=== PATIENT | female | born 1970 | race African-American/Black ===

== ENCOUNTER 2018-06-11 20:26 | Emergency (ER) | payer OTHER ==
[~2018-06-11] VITALS: Ht 167.6 cm; Wt 98.7 kg
[~2018-06-11 20:26] MED LIST: FLEXERIL10 MG PO; NAPROXEN500 MG PO
[2018-06-11 21:26] LABS: HEMATOCRIT 34.6 % (36.0-46.0); HEMOGLOBIN 11.5 G/DL (11.9-15.5); MCH 30.5 PG (29.0-34.0); MCHC 33.2 G/DL (30.0-36.0); MCV 91.8 FL (83-99); RBC DIS.WIDTH-CV 12.6 % (11.8-14.6); RBC DIS.WIDTH-SD 41.7 % (39-53); RED BLOOD COUNT 3.77 M/uL (3.80-5.20); WHITE BLOOD COUNT 8.7 K/uL (4.1-10.2)
[2018-06-11 21:27] LABS: CHLORIDE 106 mEq/L (99-109); POTASSIUM 4.3 mEq/L (3.7-5.4); SODIUM 140 mEq/L (136-147)
[2018-06-11 21:28] LABS: GLUCOSE 104 mg/dL (70-99)
[2018-06-11 21:32] LABS: GFR ESTIMATE (CALCULATED) > 59 mL/min/
[2018-06-11 21:33] LABS: UREA NITROGEN (BUN) 10 mg/dL (9-23)
[2018-06-11 21:39] LABS: TROP-I INTERPRETATION NEGATIVE; TROPONIN-I < 0.01 ng/mL (0.0-0.30)
[2018-06-11 22:10] LABS: PLAT.SUFFICIENCY ADEQUATE; PLATELET COUNT 262 K/uL (156-360)
[2018-06-12] MEDS ORDERED: ASPIR 8181 M1 PO (00:37)
[2018-06-12 00:52] VITALS: BP 132/82
[2018-06-12] MEDS ORDERED: FLONASE16 G1 BOTH NARES (21:52)
== END 2018-06-12 00:57 | disposition home or self-care (01) ==
LOC: EME 20:26
DX: I10 Essential (primary) hypertension (principal); R42 Dizziness and giddiness
CPT/HCPCS: 71046; 80048; 84484; 85027; 93005; 99281; 99284; J1885

== ENCOUNTER 2018-06-12 20:08 | Emergency (ER) | payer OTHER ==
[~2018-06-12] VITALS: Ht 170.2 cm; Wt 98.1 kg
[~2018-06-12 20:08] MED LIST changes: +ASPIR 8181 M1 PO
[2018-06-12 20:59] LABS: HEMATOCRIT 33.6 % (36.0-46.0); HEMOGLOBIN 11.4 G/DL (11.9-15.5); MCH 31.1 PG (29.0-34.0); MCHC 33.9 G/DL (30.0-36.0); MCV 91.6 FL (83-99); RBC DIS.WIDTH-CV 12.7 % (11.8-14.6); RBC DIS.WIDTH-SD 41.8 % (39-53); RED BLOOD COUNT 3.67 M/uL (3.80-5.20); WHITE BLOOD COUNT 9.3 K/uL (4.1-10.2)
[2018-06-12 21:04] LABS: CHLORIDE 105 mEq/L (99-109); SODIUM 139 mEq/L (136-147)
[2018-06-12 21:06] LABS: GLUCOSE 102 mg/dL (70-99)
[2018-06-12 21:11] LABS: CREATININE 0.8 mg/dL (0.6-1.3); GFR ESTIMATE (CALCULATED) > 59 mL/min/; UREA NITROGEN (BUN) 11 mg/dL (9-23)
[2018-06-12 21:14] LABS: TROP-I INTERPRETATION NEGATIVE; TROPONIN-I < 0.01 ng/mL (0.0-0.30)
[2018-06-12] MEDS ORDERED: FLONASE16 G1 BOTH NARES (21:52)
[2018-06-12 22:00] LABS: PLAT.SUFFICIENCY ADEQUATE; PLATELET COUNT 271 K/uL (156-360)
[2018-06-12 22:09] VITALS: BP 141/91
[2018-06-12 22:18] LABS: THYROTROPIN (TSH) 1.4 MIU/L (0.4-5.5)
== END 2018-06-12 22:10 | disposition home or self-care (01) ==
LOC: EME 20:08
PROVIDERS: Emergency Medicine
DX: G43.909 Migraine, unspecified, not intractable, without status migrainosus (principal)
CPT/HCPCS: 80048; 84443; 84484; 85027; 93005; 99281; 99284; J1885